=== PATIENT | female | born 2005 | race Two or more races ===

== ENCOUNTER 2023-06-13 15:06 | Emergency (ER) | payer OTHER, SELFPAY ==
[2023-06-13 15:10] VITALS: BP 110/82; PULSE 80; RESP 18; TEMP 36.8; O2SAT 100; BMI 39.1
--- NOTE | 2023-06-13 15:19 | ED_ITS ---
HPI - General Adult General Chief complaint: Skin/Abscess/Foreign Body Stated complaint: Dog Bite Time Seen by Provider: 06/13/23 15:08 Source: patient Mode of arrival: walk-in History of Present Illness HPI narrative: Patient is a 17-year-old female presents to the emergency department for a dog bite to the right forearm that occurred about 1 hour ago. She is confident her tetanus is up-to-date. She sustained a superficial bite with mild swelling. No significant bleeding, no deep lacerations noted. No other associated injuries. She states she left her house and was approached by a dog that bit her on the arm. She is not concerned for . Related Data Previous Rx's Medication Instructions Recorded amoxicillin 875 mg-potassium 1 tab PO Q12H #20 tabs 06/13/23 clavulanate 125 mg tablet Allergies Allergy/AdvReac Type Severity Reaction Status Date / Time No Known Drug Allergies Allergy Verified 06/13/23 15:10 Review of Systems ROS Constitutional Denies: fever or chills Ears, nose, mouth, and throat Denies: throat pain or nasal congestion Cardiovascular Denies: chest pain Respiratory Denies: shortness of breath or cough Gastrointestinal Denies: nausea or vomiting Musculoskeletal Reports: extremity pain; Denies: back pain or neck pain Integumentary/Breast Denies: rash Neurological Denies: headache Endocrine Denies: excessive urination Exam Narrative Exam Narrative: Gen.: Awake, alert, in no distress Head: Normocephalic, atraumatic ENT: Moist mucous membranes Respiratory: No respiratory distress Extremities: Moves extremities equally, 2 superficial lacerations noted to the right volar forearm with mild edema and ecchymosis in between them. There is no circumferential swelling, redness or drainage. No deep laceration into the subcutaneous tissue. Psych: Normal mood and affect Neuro: No focal neuro deficit Skin: Warm, dry, intact Constitutional Vital Signs, click to edit/add: Last Vital Signs Temp 98.2 F 06/13/23 15:10 Pulse 80 06/13/23 15:10 Resp 18 06/13/23 15:10 BP 110/82 06/13/23 15:10 Pulse Ox 100 06/13/23 15:10 O2 Del Method Room Air 06/13/23 15:10 Course Vital Signs Vital signs: Vital Signs Temperature 98.2 F 06/13/23 15:10 Pulse Rate 80 06/13/23 15:10 Respiratory Rate 18 06/13/23 15:10 Blood Pressure 110/82 06/13/23 15:10 Pulse Oximetry 100 06/13/23 15:10 Oxygen Delivery Method Room Air 06/13/23 15:10 Temperature 98.2 F 06/13/23 15:10 Pulse Rate 80 06/13/23 15:10 Respiratory Rate 18 06/13/23 15:10 Blood Pressure 110/82 06/13/23 15:10 Pulse Oximetry 100 06/13/23 15:10 Oxygen Delivery Method Room Air 06/13/23 15:10 Medical Decision Making MDM Narrative Medical decision making narrative: Patient is confident her tetanus is up-to-date. Vitals are unremarkable and lacerations are superficial, no suture repair indicated. She was given bacitracin, sterile dressing and Augmentin for 10 days. Follow-up PCP and retur n to the ER if symptoms change or worsen. Medical Records Medical records reviewed: Yes I reviewed the patient's medical records Discharge Plan Discharge Chief Complaint: Skin/Abscess/Foreign Body Clinical Impression: Dog bite of right arm Patient Disposition: Home, Self-Care Time of Disposition Decision: 15:17 Condition: Good Prescriptions / Home Meds: New amoxicillin-pot clavulanate 875-125 mg tablet 1 tab PO Q12H Qty: 20 0RF Instructions: Animal Bite (ED) Referrals: Physician,Non-Staff, MD [Primary Care Provider] - 1 week Stand Alone Forms: Portal Instructions
--- NOTE | 2023-06-13 15:39 | PC.NURSE ---
dog bite to RFA, area is a superficial skin abrasion to 2 areas, no bleeding and OTC antibiotic ointment was applied prior to arrival
[2023-06-13] MEDS: BACITRACIN 0.9 GM PACKET 1 PACKET TOPICAL (15:57)
== END 2023-06-13 16:02 | disposition home or self-care (01) ==
LOC: ER 15:33
PROVIDERS: Emergency Provider Emergency Medicine Emergency Medical Services
DX: S50.871A Other superficial bite of right forearm, initial encounter (principal); W54.0XXA Bitten by dog, initial encounter
CPT/HCPCS: 99283